=== PATIENT | female | born 1990 | race Caucasian/White ===

== ENCOUNTER 2025-01-06 03:28 | Inpatient (IN) | payer MEDICAID, SELFPAY ==
[2025-01-06] VITALS (19 sets, daily range): BP systolic 112–139; BP diastolic 62–103; PULSE 77–120; RESP 13–100; TEMP 36.4–37; O2SAT 92–100; BMI 19.3; BMI 21.3
--- NOTE | 2025-01-06 03:44 | XR_ITS ---
Examination: CT soft tissue neck, with out intravenous contrast. 2-D coronal reconstructions. 2-D sagittal reconstructions. Date and time of exam :January 16, 2025 0355 hrs. Indications: Food stuck in the throat today. CTDI: vol (mGy):11 DLP: (mGycm):288 Technique: 1.25 mm axial sections of the neck of the obtained. Coronal and sagittal reconstructions have been obtained. Low dose protocols were performed. One or more of the following dose reduction techniques were used; automated exposure control, adjustment of the mA and/or KV according to patient size, use of iterative reconstruction technique. Findings: Severe sinusitis Fluid distended esophagus with fluid contents noted in the upper thoracic esophagus No pathologic cervical lymphadenopathy Maxillary dental caries Impression: Poor bolus in the upper thoracic esophagus, recommend endoscopy or standard fluoroscopically guided esophagram follow-up
--- NOTE | 2025-01-06 03:44 | PD.EDRME ---
Rapid Medical Screening Exam RME Arrival date/time: 01/06/25 03:28 34-year-old female reports with complaints of a foreign body stuck in her throat since this evening Chief Complaint: General Adult/Misc Complain Time Seen by Provider: 01/06/25 03:34 Vital signs: Vital Signs Temperature 98.2 F 01/06/25 03:37 Pulse Rate 105 H 01/06/25 03:37 Respiratory Rate 18 01/06/25 03:37 Blood Pressure 137/86 H 01/06/25 03:37 Pulse Oximetry (%) 95 01/06/25 03:37 Oxygen Delivery Method Room Air 01/06/25 03:37
--- NOTE | 2025-01-06 05:28 | EDNOTE_ITS ---
ED Abdominal Pain RME/HPI General Chief Complaint: General Adult/Misc Complain Stated complaint: FOOD STUCKED IN THROAT Time seen by provider: 01/06/25 03:34 Arrival date/time: 01/06/25 03:28 RME / HPI RME / HPI narrative: 01/06/25 03:28 34-year-old female reports with complaints of a foreign body stuck in her throat since this evening This section includes all my notes and documentations, including HPI, PE, and ED course. Jonathan Wallace MD HPI: 35-year-old female here to be evaluated with a possible steak stuck in her throat about 6 hours ago. No shortness of breath. No vomiting. No other complaints. ROS: All negative except as documented in HPI. Physical Exam: General: Alert and oriented. No acute distress when remaining still. Eyes: Conjunctivae and lids clear. ENT: No nasal congestion. Neck: Supple. Heart: RRR. Lungs: No respiratory distress. Good air movement. No rhonchi, wheezing, rales. Abdomen: Soft and nontender. Normal bowel sounds. No distension. No rebound or guarding. Back: No CVA tenderness. Skin: Warm and dry. Neuro: Alert and oriented X 3. My review of the soft neck CT report is esophageal food impaction. I discussed the case with our GI (Dr. Taylor) and our hospitalist. About the presentation and exam and diagnostics and treatments here. And need of further care in the hospital. Will accept the patient. Jonathan Wallace MD Related Data Home Medications ?Medication ?Instructions ?Recorded ?Confirmed vit no.95-ferrous 1 tab PO QDAY 05/03/19 090 07/19 fumarate 28 mg-folic acid 800 mcg tablet () Previous Rx's ?Medication ?Instructions ?Recorded cephalexin 500 mg capsule 500 mg PO QID #40 caps 11/07 naproxen 500 mg tablet 500 mg PO BID #60 tabs 11/07 Allergies Allergy/AdvReac Type Severity Reaction Status Date / Time No Known Allergies Allergy Verified 01/06/25 03:31 Course Quality Measures none Orders Category Date Time Status Patient Condition Routine Admission 01/06/25 05:[address] in Observation Status Routine Admission 01/06/25 05:37 Active COVID-19 Screening Questionnaire NOW Care 01/06/25 05:30 Active Decision to Admit X1 Care 01/06/25 05:30 Completed NPO NOW Care 01/06/25 05:25 Active Notify provider NEEDED Care 01/06/25 05:36 Active Saline [Insert IV] NOW Care 01/06/25 05:26 Active Seizure precautions NEEDED Care 01/06/25 05:37 Active Consult to Gastroenterology Stat Cons 01/06/25 05:28 Ordered Diet NPO (NOW) Diet 01/06/25 05:[address] soft tissue neck wo con Stat Exams 01/06/25 03:44 Taken Amylase Stat Lab 01/06/25 05:27 Ordered CBC Stat Lab 01/06/25 05:27 Ordered CMP [Comprehensive Metabolic Panel] Stat Lab 01/06/25 05:27 Ordered HCG,Qualitative Serum Stat Lab 01/06/25 05:27 Ordered Lipase Stat Lab 01/06/25 05:27 Ordered Magnesium Stat Lab 01/06/25 05:27 Ordered PT [Prothrombin Time with INR] Stat Lab 01/06/25 05:27 Ordered PTT [Partial Thromboplastin Time] Stat Lab 01/06/25 05:27 Ordered Albuterol/Ipratr Rt Rosita [Duoneb Rt Rosita] Med 01/06/25 05:36 Active 3 ml INH Q4HR PRN Glucagon Inj Med 01/06/25 05:26 Discontinued 1 mg IVP X1 ONE Ondansetron Inj [Zofran Inj] Med 01/06/25 05:36 Active 4 mg IV Q6H PRN Ondansetron Inj [Zofran Inj] Med 01/06/25 05:26 Discontinued 4 mg IV X1 ONE Sodium Chloride 0.9% 1000 ml [Ns] 1,000 ml Med 01/06/25 05:26 Active IV 999 mls/hr Code Status Routine Oth 01/06/25 05:36 Ordered Oxygen Delivery PRN RT 01/06/25 05:36 Active Vital Signs Vital signs: Vital Signs Temperature 98.2 F 01/06/25 03:37 Pulse Rate 105 H 01/06/25 03:37 Respiratory Rate 18 01/06/25 03:37 Blood Pressure 137/86 H 01/06/25 03:37 Pulse Oximetry (%) 95 01/06/25 03:37 Oxygen Delivery Method Room Air 01/06/25 03:37 Abdominal Pain MDM Patient data External records reviewed:: [facility] previous records Clinical information provided by:: patient Social determinants that could affect healthcare access:: none Patient has the following chronic illnesses:: None How is presenting disease/condition affected by chronic disease/condition?: no chronic disease Evaluation data The following diagnostics were reviewed and interpreted by me:: radiology exam(s) Lab and/or radiology exams considered but not ordered:: None Interpretation Summary: Esophageal food impaction Medications / Prescriptions Medications or Prescriptions considered but not ordered:: None Medication administrations:: Medication Administration History Albuterol/Ipratropium (Albuterol/Ipratropium (Duoneb) Rt Rosita 3 Ml Nebu) 3 ml INH Q4HR PRN PRN Reason: SHORTNESS OF BREATH OR WHEEZE Stop: 02/05/25 05:35 Sodium Chloride (Ns) 1,000 mls @ 999 mls/hr IV .Q1H1M ONE Stop: 01/06/25 06:26 Ondansetron HCl (Ondansetron Inj 2 Mg/Ml Inj 2 Ml) 4 mg IV Q6H PRN; Protocol PRN Reason: NAUSEA OR VOMITING Stop: 02/05/25 05:35 Discontinued Medications Glucagon (Glucagon Inj 1 Mg Vial) 1 mg IVP X1 ONE Stop: 01/06/25 05:27 Ondansetron HCl (Ondansetron Inj 2 Mg/Ml Inj 2 Ml) 4 mg IV X1 ONE; Protocol Stop: 01/06/25 05:27 I ordered Zofran and glucagon Consultations Consultation(s) initiated? (list below): Yes Consultation #1 (Physician, Specialty, Details): I discussed the case with our GI (Dr. Taylor). About the presentation and exam and diagnostics and treatments here. And need of further care in the hospital. Recommended admission to hospitalist for EGD. Diagnosis Differential diagnosis abdominal pain: other (Food impaction, GERD, gastritis, PUD, anxiety) Most likely diagnosis given after review of the tests above:: Esophageal food impaction Admission Indicated Admission indicated?: indicated Explain why admission is indicated or not indicated:: Esophageal food impaction Admission Request Was there a request for admission?: Yes Admission Attestation Admission request attestation: Discussed case with Hospitalist service regarding admission. Discussed patients ED course, exam findings, labs, and radiology results. The Hospitalist [agrees] to accept the patient for admission. Disposition Plan Disposition Plan: Admit Discharge Plan Plan Patient Disposition: Admit Acute Care w/in Hospital Prescriptions/Referrals Prescriptions/Med Rec: No Action PNV cmb#95-ferrous fumarate-FA [] 28 mg iron- 800 mcg Tablet 1 tab PO QDAY cephalexin 500 mg capsule 500 mg PO QID Qty: 40 0RF naproxen 500 mg tablet 500 mg PO BID Qty: 60 0RF Referrals: No Primary/Family,Physician [Primary Care Provider] - In 1 week Problem List Clinical Impression: Food impaction of esophagus Patient/Caregiver Discharge Instructions Print Language: Peruvian Stand Alone Forms: Mayra Award Info., Patient Portal Info Letter
--- NOTE | 2025-01-06 05:34 | PRELIM_ITS ---
CT scan of the neck without intravenous contrast (axial sections with sagittal and coronal reformats). January 06, 2025 at 0355 hours Clinical History: ? FB. Comparison: No prior study is available for comparison. Findings: Beam hardening artifact from dental hardware limits evaluation, especially of the oral cavity. Under limitations of study there is no definite worrisome mucosal autobody of the aerodigestive tract. There is food bolus or other debris along the upper esophagus with more proximal layering esophageal fluid. There is some mild circumferential upper esophageal wall thickening which may indicate esophagitis. Bilateral parotid and submandibular glands as well as thyroid unremarkable. There is no cervical lymphadenopathy. Visualized orbits and intracranial contents are unremarkable. There are scattered paranasal sinus fluid/mucosal thickening. The tympanomastoid cavities are clear. There is no acute osseous abnormality. Multiple teeth are missing. There is severe erosive change of the right upper second molar down to the alveolar ridge. Carious lesion is noted of the left upper second molar. There is severe erosion of left lower second molar. There is periapical lucency around the left lower second molar. Impression: Food bolus or other debris along the upper esophagus, possibly impacted. There is some layering fluid within the upper esophagus more proximally. Possible upper esophagitis. Recommend GI consultation and possible esophageal scope if clinically feasible. Poor dental hygiene. Discussion Details: Results verbally communicated to : Dr. Wallace at 05:21 AM 01/06/2025 Report Electronically Signed By: Adams Harper 01/06/2025 5:33:32 AM [EST]
--- NOTE | 2025-01-06 05:39 | ESHP_ITS ---
<Statement entered by Sonya Marcus MD - 01/08/25 05:42> I reviewed above note and agree with findings and plans. I have also personally examined the patient with medicine team and went over assessment and plan with medical team including sourcing internship and resident physician. Documentation for date of: 01/06/25 HPI History of Present Illness Chief complaint: Food stuck in throat History of present illness: HPI: Patient is a 34-year-old female with no significant past medical history who presented today with the feeling of food stuck in her throat. Approximately 6 PM yesterday patient was eating tri-tip steak and she felt the sensation of food stuck in her throat. Subsequently she was unable to swallow any liquids including her saliva. If she tried to swallow anything she would have to spit it back out. Denies any vomiting, fever, diarrhea, abdominal pain. Upon review also denied any sick contacts or recent travel. Of note patient had a similar episode 1 year ago while she was rushing to eat food so she can breast-feed her baby. She also was eating steak at the time of the previous episode. She presented to the ED in [place] where she was living at the time and was given a liquid to drink [she cannot recall the name]. The food impaction did not get resolved and she went home and drank green beans soup and massaged her throat after which it resolved. ED course: BP 129/103, pulse 103, RR 18, temp 98.6 F, SpO2 100% on room air Labs pending at the time of admission. CT soft tissue neck preliminary report showed food bolus stuck in upper esophagus Glucagon, Ondansetron 4 Mg IV x 1 and normal saline 1 L IV fluid bolus. Patient will be admitted to observation for treatment and management of food impaction in the esophagus GI, Dr. Taylor consulted and closely following the case. Appreciate recommendations Review of Systems Review of Systems Narrative Review of Systems: GENERAL: Denies fever/chills or diaphoresis. HEENT: Denies headaches or visual changes. Denies discharge. Neuro: Denies unusual weakness or difficulty speaking. CARDIO: Denies chest pain or palpitations. PULM: Denies SOB, coughing or wheezing. GI: As above URO: Denies burning/itching/pain/urinary changes. 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 MSK/EXT/SKIN: Denies joint/skeletal/muscle pain, issues/changes in upper or lower extremities, itchiness, or superficial pain. PSYCH: Cooperative, pleasant mood & affect. The rest of the review of systems is otherwise negative. 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 Has 2 kids Tobacco use: Quit 12 years ago. Approximately 3 pack years ETHO use: Socially Illicit drug use: Quit marijuana use 2 years ago Social History Note: lives with and 2 kids. Family History: No significant family history Exam Vital Signs Temp Pulse Resp BP Pulse Ox O2 Del Method 98.2 F 105 H 18 137/86 H 95 Room Air 01/06/25 03:37 01/06/25 03:37 01/06/25 03:37 01/06/25 03:37 01/06/25 03:37 01/06/25 03:37 Narrative Exam Constitutional Alert, oriented x 3 and comfortable. Young female HEENT Vision grossly intact. Patent nares. Trachea midline Respiratory Chest normal on inspection and clear auscultation bilaterally Cardiovascular S1 and S2 audible, RRR. No murmurs carotid bruit. No gross JVD. Abdominal Soft and non tender to palpation in all quadrants. BS + Genitourinary No bladder tenderness, no flank pain. Normal to palpation Musculoskeletal Extremities tone within normal limits. No LE edema. Neurological CN II - XII grossly intact. Extremity motor and sensation grossly intact. Skin Warm, dry and intact. No apparent lesions. Psychiatric Patient has good affect, is cooperative Results: Labs 01/06/25 05:50 01/06/25 05:50 Quality Measures Quality Measures none Medications Home Medications and Allergies Home Medications ?Medication ?Instructions ?Recorded ?Confirmed ?Type vit no.95-ferrous 1 tab PO QDAY 05/03/19 0907/19 History fumarate 28 mg-folic acid 800 mcg tablet () Allergies Allergy/AdvReac Type Severity Reaction Status Date / Time No Known Allergies Allergy Verified 01/06/25 03:31 Visit Medications Sodium Chloride (Ns) 1,000 mls @ 999 mls/hr IV .Q1H1M ONE Stop: 01/06/25 06:26 Discontinued Medications Glucagon (Glucagon Inj 1 Mg Vial) 1 mg IVP X1 ONE Stop: 01/06/25 05:27 Ondansetron HCl (Ondansetron Inj 2 Mg/Ml Inj 2 Ml) 4 mg IV X1 ONE; Protocol Stop: 01/06/25 05:27 Assessment & Plan Plan Patient is a 34-year-old female with no significant past medical history who presented today with the feeling of food stuck in her throat. Patient will be admitted to observation for treatment and management of food impaction in the esophagus. Food impaction in the esophagus Patient was eating steak when it got stuck in her throat. CT soft tissue neck preliminary report showed food bolus stuck in upper esophagus Plan : - NPO - CBC, CMP, mag, Coagulation panel ordered - Ondansetron PRN - Ketorolac 15mg IV prn for pain - Possible EGD today - GI, Dr. Taylor consulted and closely following the case. Appreciate recommendations Health maintenance: Disposition: Pending GI recs Diet: NPO Lines: pIVs GI Prophylaxis: Pantoprazole Thrombo Prophylaxis: None Code status: FULL CODE Plan of care discussed with Attending Dr. Amrit Schultz MD PGY 1
[2025-01-06] MEDS: ONDANSETRON INJ 2 MG/ML INJ 2 ML 4 MG IV (05:49)
[2025-01-06] MEDS: SODIUM CHLORIDE 0.9% 1000 ML 1,000 ML 999 ML IV (05:49)
[2025-01-06] MEDS: GLUCAGON INJ 1 MG VIAL IVP (05:49)
[2025-01-06 06:30] LABS: Basophils % (Auto) 0 % (0-2.5); Eosinophils % (Auto) 0 % (0-10); Hematocrit 40.2 % (36.0-46.0); Hemoglobin 13.4 g/dL (12.0-16.0); Immature Granulocytes % (Auto) 1 % (0-0); Immature Granulocytes Auto 0.05 Thou/mm3 (0.00-0.00); Lymphocytes # (Auto) 1.8 Thou/mm3 (1.0-4.8); Lymphocytes % (Auto) 18 % (10-50); Mean Corpuscular HGB Conc 33.3 g/dl (31.0-37.0); Mean Corpuscular Hemoglobin 27.5 pg (25.0-35.0); Mean Corpuscular Volume 82 fL (80-100); Monocytes # (Auto) 0.6 Thou/mm3 (0.0-0.8); Monocytes % (Auto) 6 % (0-12); Neutrophils # (Auto) 7.7 Thou/mm3 (1.8-7.7); Neutrophils % (Auto) 75 % (37-80); Nucleated Red Blood Cell % 0 /100 WBC (0); Platelet Count 337 Thou/mm3 (140-440); RDW Standard Deviation 36.8 fL (36.4-46.3); Red Blood Count 4.88 Miln/mm3 (4.00-5.20); White Blood Count 10.2 Thou/mm3 (3.6-11.0)
[2025-01-06 06:46] LABS: Alanine Aminotransferase 21 U/L (10-49); Albumin/Globulin Ratio 1.8 (1.2-2.2); Alkaline Phosphatase 114 U/L (46-116); Amylase 162 U/L (30-118); Anion Gap 9 (7-16); Aspartate Amino Transferase 23 U/L (0-34); BUN/Creatinine Ratio 14 Ratio (12-20); Bilirubin,Total 0.3 mg/dL (0.3-1.2); Blood Urea Nitrogen 11 mg/dL (9-23); Calcium 10.2 mg/dL (8.3-10.6); Calcium (Corrected) 10.2 mg/dL (8.5-10.1); Carbon Dioxide 27.1 mMol/L (20.0-31.0); Chloride 111 mMol/L (98-107); Creatinine (Component) 0.8 mg/dL (0.6-1.3); Estimated Creatinine Clearance 86.7 mL/min (>60); Globulin 2.8 gm/dL (2.3-3.5); Glucose 109 mg/dL (74-106); Lipase 35 U/L (12-53); Magnesium 1.8 mg/dL (1.6-2.6); Osmolality,Calculated 292 (275-295); Partial Thromboplastin Time 25.5 Seconds (22.0-36.0); Potassium 3.2 mMol/L (3.4-5.1); Prothrombin Time 11.4 Seconds (9.0-12.2); Sodium 147 mMol/L (136-145); Total Protein 7.8 gm/dL (5.7-8.2); eGFR > 60 See Note
[2025-01-06] MEDS: KETOROLAC INJ 30 MG/ML VIAL 15 MG IVP ×3 (06:55→23:55)
[2025-01-06 07:13] LABS: HCG,Qualitative Serum Negative
[2025-01-06] MEDS: PANTOPRAZOLE INJ 40 MG VIAL IVP (08:38)
[2025-01-06] MEDS: POTASSIUM CHL 10 mEq IVPB 10 MEQ/100 ML BAG 100 MEQ IV ×4 (08:43→11:41)
[2025-01-06] MEDS: RINGERS LACTATED 1000 ML 500 ML 100 ML IV (08:43)
--- NOTE | 2025-01-06 14:47 | PD.RESPRO ---
Documentation for date of: 01/06/25 Subjective Subjective Interval history: No acute events overnight.?Patient seen and examined at bedside this AM.?She continues to be actively spitting up saliva, but is able to converse and does not appear to have any respiratory compromise. She reports some burning sensation in the area where the food bolus is stuck in her throat, and discomfort when she coughs, but otherwise denying further pain. Patient is having ice chips which provide some relief. She states that the food became lodged in her throat because she was trying to eat fast at a barbeque and the tri-tip was well-done. This has happened once before during a similar situation and otherwise the patient denies any history of dysphagia or difficulty swallowing solids or liquids in any way. Patient is planned for EGD today, to be seen by Dr. Taylor. Patient will most likely be observed overnight and discharged tomorrow morning, given able to tolerate meals well. Labs and vitals were reviewed.?Vitals stable, potassium slightly low so was repleted with 40 mEq IV along with 500 ml of LR IV fluids. No further complaints at this time. Review of systems otherwise negative except what is mentioned above. Exam Vital Signs Temp Pulse Resp BP Pulse Ox O2 Del Method 98.1 F 90 19 117/83 100 Room Air 01/06/25 10:04 01/06/25 10:04 01/06/25 10:04 01/06/25 10:04 01/06/25 10:04 01/06/25 10:04 Narrative Exam Physical Exam General: Awake and in no acute distress. Conversational and non-toxic appearing, however appears slightly uncomfortable and is spitting up saliva into emesis bag. HEENT: Normocephalic, atraumatic, mucous membranes moist. Heart: Regular rate and rhythm, no murmurs. Lungs: Clear to auscultation with no wheezing or crackles. Abdomen: Soft, nondistended, nontender, positive bowel sounds. ?No guarding or rebound tenderness. Neurologic: Alert and oriented x3, no gross neurological deficit, and patient able to move all 4 extremities. Extremities: No edema. Skin: No rash or ecchymoses. Objective Labs 01/06/25 05:50 01/06/25 05:50 Labs: Laboratory Results - last 24 hr 01/06/25 05:50 WBC 10.2 RBC 4.88 Hgb 13.4 Hct 40.2 MCV 82 MCH 27.5 MCHC 33.3 RDW Std Deviation 36.8 Plt Count 337 Neut % (Auto) 75 Lymph % (Auto) 18 [place] % (Auto) 6 Eos % (Auto) 0 Baso % (Auto) 0 Neut # (Auto) 7.7 Lymph # (Auto) 1.8 [place] # (Auto) 0.6 Eos # (Auto) 0.0 Baso # (Auto) 0.0 Immature Gran # (Auto) 0.05 H Absolute Nucleated RBC 0.00 Immature Gran % 1 H Nucleated RBC % 0 PT 11.4 INR 1.0 APTT 25.5 Sodium 147 H Potassium 3.2 L Chloride 111 H Carbon Dioxide 27.1 Anion Gap 9 BUN 11 Creatinine 0.8 Estim Creat Clear Calc 86.7 eGFR > 60 BUN/Creatinine Ratio 14 Glucose 109 H Calculated Osmolality 292 Calcium 10.2 Corrected Calcium 10.2 H Magnesium 1.8 Total Bilirubin 0.3 AST 23 ALT 21 Alkaline Phosphatase 114 Total Protein 7.8 Albumin 5.0 Globulin 2.8 Albumin/Globulin Ratio 1.8 Amylase 162 H Lipase 35 HCG, Qual Negative Quality Measures Quality Measures none Assessment & Plan Assessment Current Active Medications: Generic Name Dose Route Start Last Admin Trade Name Freq PRN Reason Stop Dose Admin Albuterol/Ipratropium 3 ml 01/06/25 05:36 Albuterol/Ipratropium (Duoneb) Rt Rosita 3 Ml Nebu INH 02/05/25 05:35 Q4HR PRN SHORTNESS OF BREATH OR WHEEZE Ketorolac Tromethamine 15 mg 01/06/25 06:22 01/06/25 06:55 Ketorolac Inj 30 Mg/Ml Vial IVP 01/11/25 06:21 15 mg Q6HR PRN Administration PAIN SCALE 4-10(Mod-Sev Ondansetron HCl 4 mg 01/06/25 05:36 Ondansetron Inj 2 Mg/Ml Inj 2 Ml IV 02/05/25 05:35 Q6H PRN NAUSEA OR VOMITING Protocol Pantoprazole Sodium 40 mg 01/06/25 09:00 01/06/25 08:38 Pantoprazole Inj 40 Mg Vial IVP 02/05/25 08:59 40 mg QDAY RO Administration Plan Patient is a 34-year-old female with no significant past medical history who presented today with the feeling of food stuck in her throat. Patient was admitted to observation for treatment and management of food impaction in the esophagus. #Food impaction in the esophagus Patient was eating steak when it got stuck in her throat. CT soft tissue neck preliminary report showed food bolus stuck in upper esophagus Plan : - NPO, ice chips ok - Ondansetron PRN - Ketorolac 15mg IV prn for pain - EGD today - GI, Dr. Taylor consulted and closely following the case. Appreciate recommendations - Will plan to observe overnight following EGD, ensure patient tolerating PO and meals - Sucralfate may be added is patient is having throat pain Health maintenance: Disposition: Pending GI recs Diet: NPO Lines: pIVs GI Prophylaxis: Pantoprazole Thrombo Prophylaxis: None Code status: FULL CODE Patient plan of care was discussed with the attending physician, Dr. Rodas. Krissy Hagen, PGY-2 Attending Provider Attestation/Addendum I have examined the patient, reviewed labs and imaging findings, discussed the case with the resident(s), and reviewed entered orders. I agree with the plan of care as outlined in this note, with these additional summaries/recommendations: Patient seen at bedside. Patient was admitted overnight for foreign body in esophagus. Patient reports she was trying to eat a piece of steak fast and got stuck in her throat. She does report 1 previous episode years ago in [place] that did not require intervention and resolved on its own. Today she reports she has been able to swallow more of her saliva but still unable to tolerate any oral intake. Gastroenterology was consulted and patient will go for EGD for foreign body removal. Mild hypokalemia present and replacement given. Dr. Adrianna MD
--- NOTE | 2025-01-06 15:50 | PC.NURSE ---
Dr. Taylor in to see patient at bedside
--- NOTE | 2025-01-06 16:14 | PD.IMCONS ---
HPI Data of Consult Requesting Physician: Sonya Marcus MD Primary Care Provider: Physician No Primary/Family Consult Narrative Reason for consult: Foreign body obstruction proximal esophagus History of present illness: 34 years old female came into the emergency room as she was eating her dinner and had a piece of meat which is Tri Trip Got stuck in the proximal esophagus she is having excessive salivation She did have a bad episode in [place] but did not require any endoscopic intervention the piece of meat passed by itself cc:: cc: Sonya Marcus MD Review of Systems Review of Systems Systems Reviewed: All systems reviewed, normal except as documented Meds Home Medications and Allergies Home Medications ?Medication ?Instructions ?Recorded ?Confirmed ?Type vit no.95-ferrous 1 tab PO QDAY 05/03/19 07/09/19 History fumarate 28 mg-folic acid 800 mcg tablet () Allergies Allergy/AdvReac Type Severity Reaction Status Date / Time No Known Allergies Allergy Verified 01/06/25 03:31 Exam Vital Signs Temp Pulse Resp BP Pulse Ox O2 Del Method 97.6 F 90 18 127/88 H 98 Room Air 01/06/25 15:42 01/06/25 15:42 01/06/25 15:42 01/06/25 15:42 01/06/25 15:42 01/06/25 15:42 Constitutional Comments: Alert oriented having excessive salivation Routine Respiratory Exam Comments: Normal to auscultation Routine Abdominal Exam Comments: Soft nontender Results Labs 01/06/25 05:50 01/06/25 05:50 Labs: Short CBC 01/06/25 Range/Units 05:50 WBC 10.2 (3.6-11.0) Thou/mm3 Hgb 13.4 (12.0-16.0) g/dL Hct 40.2 (36.0-46.0) % Plt Count 337 (140-440) Thou/mm3 BMP 01/06/25 05:50 Sodium 147 H Potassium 3.2 L Chloride 111 H Carbon Dioxide 27.1 BUN 11 Creatinine 0.8 Glucose 109 H Calcium 10.2 Liver Function 01/06/25 Range/Units 05:50 Total Bilirubin 0.3 (0.3-1.2) mg/dL AST 23 (0-34) U/L ALT 21 (10-49) U/L Alkaline Phosphatase 114 (46-116) U/L Albumin 5.0 (3.5-5.0) gm/dL Assessment and Plan Additional Assessment & Plan Additional Plan: # Foreign body obstruction esophagus Plan consent obtained for fiberoptic esophagogastroduodenoscopy with possible biopsy possible therapeutic intervention under intravenous moderate sedation Thank you very much for the opportunity to participate in the care of this patient
--- NOTE | 2025-01-06 18:50 | PC.NURSE ---
Dr. Taylor came to see patient at bedside. VS within normal limits, patient ate dinner resting comfortably in bed no complaints at this time.
[2025-01-07] VITALS: BP 130/86; PULSE 79; RESP 17; TEMP 36.6; O2SAT 98
[2025-01-07 04:00] VITALS: BP 121/80; PULSE 96; RESP 17; TEMP 36.1; O2SAT 99
[2025-01-07] MEDS: KETOROLAC INJ 30 MG/ML VIAL 15 MG IVP (07:57)
[2025-01-07 08:00] VITALS: BP 124/88; PULSE 87; RESP 18; TEMP 36.4; O2SAT 100
[2025-01-07] MEDS: PANTOPRAZOLE INJ 40 MG VIAL IVP (08:00)
[2025-01-07 08:22] LABS: Basophils % (Auto) 0 % (0-2.5); Eosinophils # (Auto) 0.3 Thou/mm3 (0.0-0.5); Eosinophils % (Auto) 4 % (0-10); Hematocrit 34.5 % (36.0-46.0); Hemoglobin 11.5 g/dL (12.0-16.0); Immature Granulocytes % (Auto) 0 % (0-0); Immature Granulocytes Auto 0.02 Thou/mm3 (0.00-0.00); Lymphocytes # (Auto) 1.9 Thou/mm3 (1.0-4.8); Lymphocytes % (Auto) 23 % (10-50); Mean Corpuscular HGB Conc 33.3 g/dl (31.0-37.0); Mean Corpuscular Hemoglobin 27.4 pg (25.0-35.0); Mean Corpuscular Volume 82 fL (80-100); Monocytes # (Auto) 0.6 Thou/mm3 (0.0-0.8); Monocytes % (Auto) 7 % (0-12); Neutrophils # (Auto) 5.5 Thou/mm3 (1.8-7.7); Neutrophils % (Auto) 66 % (37-80); Nucleated Red Blood Cell % 0 /100 WBC (0); Platelet Count 239 Thou/mm3 (140-440); RDW Standard Deviation 36.7 fL (36.4-46.3); White Blood Count 8.4 Thou/mm3 (3.6-11.0)
[2025-01-07 08:59] LABS: Alanine Aminotransferase 16 U/L (10-49); Albumin, Serum 3.9 gm/dL (3.5-5.0); Albumin/Globulin Ratio 1.7 (1.2-2.2); Alkaline Phosphatase 102 U/L (46-116); Anion Gap 10 (7-16); Aspartate Amino Transferase 16 U/L (0-34); BUN/Creatinine Ratio 14 Ratio (12-20); Bilirubin,Total 0.6 mg/dL (0.3-1.2); Blood Urea Nitrogen 10 mg/dL (9-23); Calcium 8.8 mg/dL (8.3-10.6); Calcium (Corrected) 8.9 mg/dL (8.5-10.1); Carbon Dioxide 24.2 mMol/L (20.0-31.0); Chloride 108 mMol/L (98-107); Creatinine (Component) 0.7 mg/dL (0.6-1.3); Estimated Creatinine Clearance 95.4 mL/min (>60); Globulin 2.3 gm/dL (2.3-3.5); Glucose 76 mg/dL (74-106); Osmolality,Calculated 281 (275-295); Potassium 3.2 mMol/L (3.4-5.1); Sodium 142 mMol/L (136-145); Total Protein 6.2 gm/dL (5.7-8.2); eGFR > 60 See Note
[2025-01-07 09:16] VITALS: BMI 21.3
[2025-01-07] MEDS: ACETAMIN/CAFF/BUTAL (Fioricet) 1 TAB PO (10:59)
[2025-01-07] MEDS: POTASSIUM CHLORIDE 20 mEq TABCR 40 MEQ PO (10:59)
[2025-01-07 11:26] VITALS: PULSE 78; RESP 100; RESP 18; O2SAT 100
[2025-01-07 12:00] VITALS: BP 127/73; PULSE 78; RESP 18; TEMP 36.5; O2SAT 95
--- NOTE | 2025-01-07 14:49 | PD.RESDS ---
Planned Discharge Date 01/07/25 DS: Providers Provider Date of admission: 01/06/25 10:47 Primary care physician: Physician No Primary/Family Admitting Provider: Sonya Marcus MD Attending Provider on Admission: Yanick Rodas MD Consults: 01/06/25 05:28 Consult to Gastroenterology Stat Comment: Esophageal food bolus Consulting Provider: Riccardo Taylor 01/06/25 12:41 Referral Registered Dietitian Routine Comment: 2nd time a foreign body gets stuck in esophagus Attending Provider on DC: Yanick Rodas MD Discharging Provider: Krissy Hagen MD DS: Diagnosis Problem List Completed Was Problem List Reviewed/Reconciled?: Yes Hospital Course Hospital Course Hospital course: Reason for hospitalization: Esophageal food impaction Patient is a 34-year-old female without significant medical history who presented to the ED on 01/06/2025 due to sensation of food stuck in her throat and inability to pass it. Patient had stated she was at a barbeque and trying to eat some tri-tip meat fast so that she could take care of her child. Patient otherwise had normal labs and no respiratory compromise. GI was consulted and performed EGD on the patient which showed the foreign body stuck, lots of secretions which were suctioned, and ulceration surrounding the foreign body. Endoscopic technique was used to push the food bolus past the GE junction into the stomach. Mild gastritis was seen but otherwise no esophageal strictures noted. Patient tolerated meals well following procedure and was determined stable for discharge home with dietary instruction. Discharge Recommendations: -Follow up with PCP within 1 week of discharge -Please ensure your meals are well chopped before consuming -Continue rest of medications as previously prescribed -Return to the ED or call EMS if symptoms return and/or worsen. Hospital Diagnoses: #Esophageal food impaction Patient plan of care was discussed with the attending physician, Dr. Rodas. Krissy Hagen, PGY-2 Time Spent with Patient Time attestation: Total time spent providing and/or coordinating discharge services: Exam Vital Signs Temp Pulse Resp BP Pulse Ox O2 Del Method O2 Flow Rate 97.6 F 78 18 124/88 H 100 Room Air 2 01/07/25 08:00 01/07/25 11:26 01/07/25 11:26 01/07/25 08:00 01/07/25 11:26 01/07/25 08:00 01/06/25 17:05 Narrative Exam Physical Exam General: Awake and in no acute distress. Conversational and non-toxic appearing. HEENT: Normocephalic, atraumatic, mucous membranes moist. Heart: Regular rate and rhythm, no murmurs. Lungs: Clear to auscultation with no wheezing or crackles. Abdomen: Soft, nondistended, nontender, positive bowel sounds. ?No guarding or rebound tenderness. Neurologic: Alert and oriented x3, no gross neurological deficit, and patient able to move all 4 extremities. Extremities: No edema. Skin: No rash or ecchymoses. Discharge Plan Plan Patient Disposition: HOME (Self Care) Patient condition on transfer: Stable Care Plan Goals: Discharge Recommendations: -Follow up with PCP within 1 week of discharge -Please ensure your meals are well chopped before consuming -Continue rest of medications as previously prescribed -Return to the ED or call EMS if symptoms return and/or worsen. Prescriptions/Referrals Prescriptions/Med Rec: Discontinued PNV [id number] [] 28 mg iron- 800 mcg Tablet 1 tab PO QDAY cephalexin 500 mg capsule 500 mg PO QID Qty: 40 0RF naproxen 500 mg tablet 500 mg PO BID Qty: 60 0RF Referrals: No Primary/Family,Physician [Primary Care Provider] - Patient/Caregiver Discharge Instructions Education Materials: 5 Steps for Eating Healthier, Eating a High-Fiber Diet Print Language: Mongolian Stand Alone Forms: Mayra Award Info., Patient Portal Info Letter Discharge Order Discharge Orders: Discharge (Routine); Ordered 01/07/25 Ordered By: Krissy Hagen Quality Discharge Quality Measures none MD Attestestation MD Attestation I have examined the patient, reviewed labs and imaging findings, discussed the case with the resident(s), and reviewed entered orders. I agree with the plan of care as outlined in this note. Dr. Adrianna MD
--- NOTE | 2025-01-07 23:25 | PD.IMPROG ---
Documentation for date of: 01/07/25 Subjective Subjective Interval history: Late entry for the note Case discussed with the internal medicine team okay to discharge patient home to be followed by the PCP Exam Vital Signs Temp Pulse Resp BP Pulse Ox O2 Del Method O2 Flow Rate 97.7 F 78 18 127/73 95 Room Air 2 01/07/25 12:00 01/07/25 12:00 01/07/25 12:00 01/07/25 12:00 01/07/25 12:00 01/07/25 12:00 01/06/25 17:05 Objective Labs 01/07/25 08:04 01/07/25 08:04 Labs: Laboratory Results - last 24 hr 01/07/25 08:04 WBC 8.4 RBC 4.20 Hgb 11.5 L Hct 34.5 L MCV 82 MCH 27.4 MCHC 33.3 RDW Std Deviation 36.7 Plt Count 239 D Neut % (Auto) 66 Lymph % (Auto) 23 [place] % (Auto) 7 Eos % (Auto) 4 Baso % (Auto) 0 Neut # (Auto) 5.5 Lymph # (Auto) 1.9 [place] # (Auto) 0.6 Eos # (Auto) 0.3 Baso # (Auto) 0.0 Immature Gran # (Auto) 0.02 H Absolute Nucleated RBC 0.00 Immature Gran % 0 Nucleated RBC % 0 Sodium 142 Potassium 3.2 L Chloride 108 H Carbon Dioxide 24.2 Anion Gap 10 BUN 10 Creatinine 0.7 Estim Creat Clear Calc 95.4 eGFR > 60 BUN/Creatinine Ratio 14 Glucose 76 Calculated Osmolality 281 Calcium 8.8 Corrected Calcium 8.9 Total Bilirubin 0.6 AST 16 ALT 16 Alkaline Phosphatase 102 Total Protein 6.2 Albumin 3.9 D Globulin 2.3 Albumin/Globulin Ratio 1.7 Impressions Impression: Esophageal foreign body obstruction requiring endoscopic removal doing well postprocedure Okay to discharge patient home Assessment & Plan A&P Narrative # Foreign body obstruction esophagus Plan consent obtained for fiberoptic esophagogastroduodenoscopy with possible biopsy possible therapeutic intervention under intravenous moderate sedation Thank you very much for the opportunity to participate in the care of this patient Time Spent With Patient Time: Total time spent is greater than 50% in coordination of care (as documented) at patient's floor/unit and/or counseling patient:
== END 2025-01-07 12:54 | disposition home or self-care (01) | DRG 254 ==
LOC: SERX 05:31 → SERHOLD 10:55 → S3SX 16:05 → SERHOLD 01-07 05:44
PROVIDERS: Specialist; Student in an Organized Health Care Education/Training Program; Admitting Provider Internal Medicine; Emergency Provider Emergency Medicine; Visit Provider Student in an Organized Health Care Education/Training Program
PROC: (CPT 43239; principal; 2025-01-06 17:15)
DX: T18.128A Food in esophagus causing other injury, initial encounter (principal); K29.70 Gastritis, unspecified, without bleeding; E87.6 Hypokalemia; K11.7 Disturbances of salivary secretion; W44.F3XA Food entering into or through a natural orifice, initial encounter; Z87.891 Personal history of nicotine dependence
CPT/HCPCS: 36415; 70490; 80053; 82150; 83690; 83735; 84703; 85025; 85610; 85730; 96361; 96365; 96375; 99285; J1200; J1610; J1885; J2175; J2250; J2405; J2470; J3010; J3480; J7030; J7120; A9270

== ENCOUNTER 2025-09-05 19:34 | Emergency (ER) | payer MEDICAID, SELFPAY ==
[2025-09-05 19:35] VITALS: BMI 19.5
[2025-09-05 19:44] VITALS: BP 113/68; PULSE 79; RESP 16; TEMP 36.4; O2SAT 99
--- NOTE | 2025-09-05 19:54 | XR_ITS ---
Examination: Pelvic ultrasound, transabdominal, complete Technique: Transabdominal ultrasound of the pelvis performed using grayscale imaging Date and time of exam: September 05, 2025, 2120 hours INDICATIONS: Onset pelvic pain today FINDINGS: Uterus 7.8 cm endometrial stripe 0.8 cm No uterine mass or intrauterine gestation Right ovary 3.4 cm arterial flow Left ovary 3.3 cm arterial flow 14 mm follicular cyst IMPRESSION: Negative examination
--- NOTE | 2025-09-05 19:55 | EDNOTE_ITS ---
ED Abdominal Pain RME/HPI General Chief Complaint: Abdominal Pain Stated complaint: LOWER ABDOMINAL PAIN Time seen by provider: 09/05/25 19:51 Arrival date/time: 09/05/25 19:34 Source: patient, RN notes reviewed and old records reviewed Mode of arrival: ambulatory Limitations: no limitations RME / HPI RME / HPI narrative: 34yof presents to ED for generalized pelvic cramping that initiated yesterday. No fever, nausea/vomiting, dysuria or vaginal discharge reported. Patient took ibuprofen this afternoon with mild relief. Related Data Previous Rx's ?Medication ?Instructions ?Recorded cyclobenzaprine 5 mg tablet 5 mg PO TID PRN pain #20 t abs 09/05/25 ibuprofen 600 mg tablet 600 mg PO Q6H PRN pain #20 t abs 09/05/25 Allergies Allergy/AdvReac Type Severity Reaction Status Date / Time No Known Allergies Allergy Verified 01/06/25 03:31 Review of Systems Review of Systems Systems Reviewed: All systems reviewed, normal except as documented Constitutional Constitutional: Denies chills and Denies fever(s) Gastrointestinal Gastrointestinal: Denies nausea and Denies vomiting Genitourinary Genitourinary: Denies dysuria, Denies flank pain, Denies hematuria and Reports pelvic pain Past Medical History Surgical History OTHER SURGICAL HX: Denies past surgical history Social History SMOKING STATUS: Never smoker SUBSTANCE USE: does not use ALCOHOL: Never Past Medical History Comments PMH COMMENT: Denies past medical history ED Exam General Limitations: Present no limitations General appearance: Present alert and in no apparent distress Head Head exam: Present atraumatic and normocephalic Eye Eye exam: Present normal appearance, PERRL and EOMI ENT ENT exam: Present normal exam and mucous membranes moist Neck Neck exam: Present normal inspection and full ROM Chest Chest inspection: Present normal inspection and symmetric chest wall rise Respiratory Respiratory exam: Present normal lung sounds bilaterally; Absent respiratory distress Cardiovascular Cardiovascular exam: Present regular rate and normal rhythm Abdominal Exam Abdominal exam: Present soft; Absent distention, tenderness, guarding or rebound Extremities Exam Extremities exam: Present normal inspection and full ROM Back Exam Back exam: Absent CVA tenderness (R) or CVA tenderness (L) Neurological Exam Neurological exam: Present alert and oriented X3 Psychiatric Psychiatric exam: Present normal affect and normal mood Skin Skin exam: Present warm, dry, intact and normal color Course Quality Measures none Orders Category Date Time Status US pelvic complete Stat Exams 09/05/25 19:54 Completed CBC Stat Lab 09/05/25 20:12 Completed CMP [Comprehensive Metabolic Panel] Stat Lab 09/05/25 20:12 Completed HCG Qualitative,Urine Stat Lab 09/05/25 20:36 Completed UA [Urinalysis] Stat Lab 09/05/25 20:36 Completed Acetaminophen Tab [Tylenol ES Tab] Med 09/05/25 19:54 Discontinued 1,000 mg PO X1 ONE CYCLObenzaPRINE [Flexeril] Med 09/05/25 19:54 Discontinued 5 mg PO X1 ONE Vital Signs Vital signs: Vital Signs Temperature 97.6 F 09/05/25 19:44 Pulse Rate 79 09/05/25 19:44 Respiratory Rate 16 09/05/25 19:44 Blood Pressure 113/68 09/05/25 19:44 Pulse Oximetry (%) 99 09/05/25 19:44 Oxygen Delivery Method Room Air 09/05/25 19:44 Abdominal Pain MDM MDM Narrative MDM Narrative:: 34yof presents to ED for generalized pelvic cramping that initiated yesterday. No fever, nausea/vomiting, dysuria or vaginal discharge reported. Patient took ibuprofen this afternoon with mild relief. Patient reassessed. Symptoms improved after medications administered. ED workup and exam reassuring. Discussed pain management prn. 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 Stable for discharge, RTED precautions given. Patient data External records reviewed:: [facility] previous records (Admit 01/06/2025 for food impaction of esophagus) Clinical information provided by:: patient Social determinants that could affect healthcare access:: other (specify) (Poor access to healthcare) Patient has the following chronic illnesses:: None How is presenting disease/condition affected by chronic disease/condition?: no chronic disease Evaluation data The following diagnostics were reviewed and interpreted by me:: lab results and radiology exam(s) Lab and/or radiology exams considered but not ordered:: None Interpretation Summary: No leukocytosis No anemia No BEKA Negative No UTI (UA contaminated) Pelvic US: IMPRESSION: Negative examination Dictated By: Micah Chen MD Medications / Prescriptions Medications or Prescriptions considered but not ordered:: No antibiotics recommended at this time Medication administrations:: Medication Administration History Discontinued Medications Acetaminophen (Acetaminophen 500 Mg Tablet) 1,000 mg PO X1 ONE Stop: 09/05/25 19:55 Last Admin: 09/05/25 20:16 Dose: 1,000 mg Documented By: PONCE Cyclobenzaprine HCl (Cyclobenzaprine 5 Mg Tablet) 5 mg PO X1 ONE Stop: 09/05/25 19:55 Last Admin: 09/05/25 20:16 Dose: 5 mg Documented By: PONCE Above medications administered in ED Consultations Consultation(s) initiated? (list below): No Diagnosis Differential diagnosis abdominal pain: other (UTI, dysmenorrhea, ovarian cyst, ovarian torsion, uterine fibroid) Most likely diagnosis given after review of the tests above:: Pelvic pain Admission Indicated Admission indicated?: not indicated Admission Request Was there a request for admission?: No Disposition Plan Disposition Plan: Discharge Discharge Attestation Discharge Attestation: The patient and all family members were given an opportunity to ask questions and understood the discharge instructions. Discharge instructions specifically effects, indications for sooner follow up or return to the emergency department, and the expected course of current diagnosis. Patient condition: Stable Discharge Plan Plan Patient Disposition: HOME (Self Care) Patient condition on transfer: Stable Prescriptions/Referrals Prescriptions/Med Rec: New ibuprofen 600 mg tablet 600 mg PO Q6H PRN (Reason: pain) Qty: 20 0RF cyclobenzaprine 5 mg tablet 5 mg PO TID PRN (Reason: pain) Qty: 20 0RF Referrals: Jeffrey Hobbs MD [Primary Care Provider, Family Practice] - In 1 week Problem List Clinical Impression: Pelvic pain Patient/Caregiver Discharge Instructions Education Materials: ED Pelvic Pain, Unknown Cause Print Language: Uzbek Stand Alone Forms: Mayra Award Info., Patient Portal Info Letter CHERRI/BETY Supervising Physician BLANQUITA Supervising Physician: Joseph
[2025-09-05] MEDS: ACETAMINOPHEN 500 MG TABLET 1000 MG PO (20:16)
[2025-09-05 20:46] LABS: Basophils # (Auto) 0.0 Thou/mm3 (0.0-0.2); Basophils % (Auto) 1 % (0-2.5); Eosinophils # (Auto) 0.8 Thou/mm3 (0.0-0.5); Eosinophils % (Auto) 10 % (0-10); Hematocrit 40.4 % (36.0-46.0); Hemoglobin 13.2 g/dL (12.0-16.0); Immature Granulocytes Auto 0.01 Thou/mm3 (0.00-0.00); Lymphocytes # (Auto) 3.1 Thou/mm3 (1.0-4.8); Lymphocytes % (Auto) 38 % (10-50); Mean Corpuscular HGB Conc 32.7 g/dl (31.0-37.0); Mean Corpuscular Hemoglobin 27.5 pg (25.0-35.0); Mean Corpuscular Volume 84 fL (80-100); Monocytes # (Auto) 0.5 Thou/mm3 (0.0-0.8); Monocytes % (Auto) 6 % (0-12); Neutrophils # (Auto) 3.5 Thou/mm3 (1.8-7.7); Neutrophils % (Auto) 45 % (37-80); Nucleated Red Blood Cell # 0.00 Thou/mm3 (0.00-0.00); Nucleated Red Blood Cell % 0 /100 WBC (0); Platelet Count 232 Thou/mm3 (140-440); RDW Standard Deviation 36.8 fL (36.4-46.3); Red Blood Count 4.80 Miln/mm3 (4.00-5.20); White Blood Count 7.9 Thou/mm3 (3.6-11.0)
[2025-09-05 20:47] LABS: Collection Type, Urine Clean Catch
[2025-09-05 20:49] LABS: HCG Qualitative,Urine Negative
[2025-09-05 20:50] LABS: Alanine Aminotransferase < 7 U/L (10-49); Albumin, Serum 4.4 gm/dL (3.5-5.0); Albumin/Globulin Ratio 1.8 (1.2-2.2); Alkaline Phosphatase 97 U/L (46-116); Anion Gap 7 (7-16); Aspartate Amino Transferase < 8 U/L (0-34); BUN/Creatinine Ratio 10 Ratio (12-20); Bilirubin,Total 0.3 mg/dL (0.3-1.2); Blood Urea Nitrogen 8 mg/dL (9-23); Calcium 9.2 mg/dL (8.3-10.6); Calcium (Corrected) 9.2 mg/dL (8.5-10.1); Carbon Dioxide 29.6 mMol/L (20.0-31.0); Chloride 105 mMol/L (98-107); Creatinine (Component) 0.8 mg/dL (0.6-1.3); Estimated Creatinine Clearance 90.4 mL/min (>60); Globulin 2.5 gm/dL (2.3-3.5); Glucose 80 mg/dL (74-106); Osmolality,Calculated 280 (275-295); Potassium 4.6 mMol/L (3.4-5.1); Sodium 142 mMol/L (136-145); Total Protein 6.9 gm/dL (5.7-8.2); eGFR > 60 See Note
[2025-09-05 20:51] LABS: Amorphous Crystals,Urine Present (Absent); Bacteria,Urine Rare; Bilirubin,Urine Negative (Negative); Blood,Urine Negative (Negative); Clarity,Urine Clear (Clear/Hazy); Color,Urine Lt-Yellow (Lt Yel-Yel); Glucose, Urine Negative (Negative); Ketones,Urine Negative (Negative); Leukocyte Esterase,Urine Positive (Negative); Nitrite,Urine Negative (Negative); PH,Urine 7.0 (5.0-7.0); Protein,Urine Negative (Neg - Trace); RBC,Urine 1 /hpf (0-3); Specific Gravity,Urine 1.016 (1.001-1.035); Squamous Epithelial Cell,Urine 8 /hpf (0-5); Urobilinogen,Urine Negative mg/dL (0.0-1.0); WBC,Urine 3 /hpf (0-5)
== END 2025-09-06 01:23 | disposition home or self-care (01) ==
PROVIDERS: Physician Assistant; Emergency Provider Emergency Medicine; PCP Family Medicine
DX: R10.20 Pelvic and perineal pain unspecified side (principal)
CPT/HCPCS: 36415; 76856; 80053; 81001; 81025; 85025; 99283; A9270